=== PATIENT | male | born 1945 | race American Indian/Alaskan Native ===

== ENCOUNTER 2017-12-18 22:10 | Observation (INO) | payer MEDICARE, OTHER ==
[2017-12-19 00:15] LABS: BASO # 0.02 K/mm3 (0.0-2.0); BASO % 0.4 % (0.0-3.0); EOS # 0.8 (0.0-0.7); GRAN # 1.82 (1.4-6.5); GRAN % 34.4 % (50.0-68.0); HEMOGLOBIN 12.1 g/dL (14.0-18.0); LYMPH # 2.3 (1.2-3.4); LYMPH % 43.4 % (22.0-35.0); MEAN CELL VOLUME 78.1 fl (80.0-105.0); MEAN CORPUSCULAR HEMOGLOBIN 26.2 pg (25.0-35.0); MEAN CORPUSCULAR HGB CONC 33.6 g/dl (31.0-37.0); MEAN PLATELET VOLUME 10.2 fl (7.0-11.0); MONO # 0.4 (0.1-0.6); MONO % 6.8 % (1.0-6.0); RBC 4.61 10^6/uL (3.5-6.1); RED CELL DISTRIBUTION WIDTH 14.9 % (11.5-14.5); WHITE BLOOD COUNT 5.3 10^3/ul (4.5-11.0)
[2017-12-19] MEDS ORDERED: Morphine 2 mg/ml ISec IVP STA ×2 (00:19→01:21)
[2017-12-19] MEDS: Sodium Chloride 0.9% 1,000 ML IV SCH ×3 (00:26→21:51)
[2017-12-19 00:27] LABS: INR 1.18 (0.93-1.08); PARTIAL THROMBOPLASTIN TIME 26.8 Seconds (25.1-36.5); PROTHROMBIN TIME 13.5 SECONDS (9.4-12.5)
[2017-12-19 00:31] LABS: ALB/GLOB RATIO 1.2 (1.1-1.8); ALBUMIN 3.9 g/dL (3.0-4.8); ALT/SGPT 45 U/L (7-56); AST/SGOT 42 U/L (17-59); BLOOD UREA NITROGEN 23 mg/dL (7-21); CALCIUM 8.9 mg/dL (8.4-10.5); GFR AFRICAN-AMERICAN 56; GFR NON-AFRICAN AMERICAN 46; HDL CHOLESTEROL 47 mg/dL (29-60)
[2017-12-19 00:42] LABS: LDL CHOLESTEROL 70 mg/dL (0-129)
[2017-12-19 00:45] LABS: TROPONIN I < 0.01 ng/mL
[2017-12-19 01:04] LABS: CK-MB 3.9 ng/mL (0.0-3.6)
--- NOTE | 2017-12-19 01:18 | ED PDOC ---
Arrival/HPI - General Chief Complaint: Headache Time Seen by Provider: 12/18/17 23:00 Historian: Patient - History of Present Illness Narrative History of Present Illness (Text): 12/19/17 00:00 72 year old male, with past medical history of cardiac arrhythmia, open heart surgery and hypertension on Plavix and Eliquis, presents to the Emergency department complaining of sudden onset of headache and neck pain for past 3 hours. Patient states symptoms started as a pressure sensation along the shoulders and neck 3 hours prior to arrival, resolving spontaneously after 10 minutes. However, the sensation returned soon after, associated with pressure across shoulders bilaterally and radiating to his neck and head. Patient states he developed upper extremity weakness bilaterally while waiting in the Emergency department but denies any numbness or tingling. Patient states he is unable to raise his arms above his shoulders. pt denies any lower extremity weakness. Patient denies any dizziness, blurred vision, slurred speech, fever, chills, nausea, vomiting, diarrhea, abdominal pain, chest pain, shortness of breath, or any other complaints. no medications have been taken at home for pain. Time/Duration: 1-3 hours Symptom Onset: Gradual Symptom Course: Unchanged Quality: Aching, Pressure Severity Level: 10 Activities at Onset: Light Context: Home Past Medical History - Provider Review Nursing Documentation Reviewed: Yes - Travel History Have you recently traveled outside [place] w/in the past 3 mons?: No - Tetanus Immunization Tetanus Immunization: Unknown - Psychiatric Hx Substance Use: No Family/Social History - Physician Review Nursing Documentation Reviewed: Yes Family/Social History: No Known Family HX Smoking Status: n Hx Alcohol Use: No Hx Substance Use: No Allergies/Home Meds Allergies/Adverse Reactions: Allergies No Known Allergies Allergy (Verified 12/18/17 23:39) Home Medications: Home Meds Medication Instructions Recorded Confirmed Amiodarone [Cordarone] 200 mg PO BID 12/19/17 12/19/17 Apixaban [Eliquis] 5 mg PO BID 12/19/17 12/19/17 Aspirin [Adult Low Dose Aspirin EC] 81 mg PO DAILY 12/19/17 12/19/17 Atorvastatin [Lipitor] 40 mg PO DAILY 12/19/17 12/19/17 Clopidogrel [Plavix] 75 mg PO DAILY 12/19/17 12/19/17 GlipiZIDE [Glucotrol] 5 mg PO DAILY 12/19/17 12/19/17 Insulin Glargine,Hum.rec.anlog 12.5 units SC 12/19/17 12/19/17 [Basaglthanh Lennonpen U-100] Metoprolol Succinate XL [Toprol XL] 25 mg PO DAILY 12/19/17 12/19/17 Ramipril [Altace] 5 mg PO DAILY 12/19/17 12/19/17 Ramipril [Altace] 10 mg PO DAILY 12/19/17 12/19/17 Tamsulosin [Flomax] 0.4 mg PO DAILY 12/19/17 12/19/17 Review of Systems - Physician Review All systems were reviewed & negative as marked: Yes - Review of Systems Constitutional: Fatigue. absent: Fevers Eyes: Normal Respiratory: absent: SOB, Cough Cardiovascular: absent: Chest Pain, Palpitations Gastrointestinal: absent: Abdominal Pain, Diarrhea, Nausea, Vomiting Genitourinary Male: absent: Dysuria, Frequency, Hematuria, Urinary Output Changes Musculoskeletal: Neck Pain, Other (Upper extremity weakness) Skin: Normal Neurological: Headache. absent: Dizziness, Speech Changes Endocrine: Normal Hemo/Lymphatic: Normal Psychiatric: absent: Anxiety, Depression Physical Exam Vital Signs Reviewed: Yes Vital Signs Temp Pulse Resp BP Pulse Ox 12/19/17 01:42 61 18 182/94 H 100 12/19/17 00:45 63 18 188/99 H 100 12/18/17 23:39 97.9 F 79 18 210/106 H 99 Temperature: Afebrile Blood Pressure: Hypertensive Pulse: Regular Respiratory Rate: Normal Appearance: Positive for: Well-Appearing, Non-Toxic, Uncomfortable Pain Distress: None Mental Status: Positive for: Alert and Oriented X 3 Finger Stick Blood Glucose: 204 - Systems Exam Head: Present: Atraumatic, Normocephalic Pupils: Present: PERRL Extroacular Muscles: Present: EOMI Conjunctiva: Present: Normal Ears: Present: Normal, NORMAL TM Mouth: Present: Moist Mucous Membranes Nose (External): Present: Atraumatic Nose (Internal): Present: Normal Inspection Neck: Present: Normal Range of Motion, MIDLINE TENDERNESS, Paraspinal Tenderness (bilateral paraspinal tenderness), Trachea Midline, Other ( tenderness to trapezius aspect of neck.). No: Lymphadenopathy Respiratory/Chest: Present: Clear to Auscultation, Good Air Exchange. No: Respiratory Distress, Accessory Muscle Use Cardiovascular: Present: Regular Rate and Rhythm, Normal S1, S2. No: Murmurs Abdomen: No: Tenderness, Distention, Peritoneal Signs, Rebound, Guarding Back: Present: Normal Inspection Upper Extremity: Present: Normal Inspection, NORMAL PULSES, Neurovascularly Intact, Capillary Refill < 2s, Other (bilateral upper extremity weakness with decreased abduction of the arm at the shoulder bilaterally. raised printer strenght 5/5 bilaterally). No: Cyanosis, Edema, Normal ROM, Tenderness, Swelling, Erythema Lower Extremity: Present: Normal Inspection, NORMAL PULSES, Normal ROM (with 5/ 5 in strength.), Neurovascularly Intact. No: Edema Neurological: Present: GCS=15, Speech Normal, Motor Func Grossly Intact (muscle strenght is 5/5 bilaterally in the lower extremities. ), Normal Sensory Function Skin: Present: Warm, Dry, Normal Color. No: Rashes Psychiatric: Present: Alert, Oriented x 3, Normal Insight, Normal Concentration Medical Decision Making ED Course and Treatment: 12/19/17 00:00 72 year old male presents to the Emergency department for headache, neck pain and upper extremity weakness. pt was seen and evaluated by dr. avendaño; Plan: -- CT of cervical spine -- CT of Head -- EKG -- Labs -- Chest X-ray -- Morphine -- IV Fluids -- Reassess and disposition Prior Visits: Notes and results from previous visits were reviewed. Progress Notes: 12/19/17 01:[address]; FINDINGS: Brain: There is minimal periventricular white matter hypodensity, likely representing small vessel ischemic disease in a patient this age. The acuity of the white matter disease is indeterminate. Hypodense dilated perivascular spaces are identified below the bilateral basal ganglia. The whitegray differentiation is preserved demonstrating no acute territorial type infarct. Calcification of the falx is visualized. There is mild prominence of the sulci, compatible with atrophy. No acute intracranial hemorrhage is seen. Midline shift: There is no midline shift. Ventricles: No ventriculomegaly. Bones/joints: The calvarium demonstrates no evidence for a depressed fracture. Soft tissues: No acute abnormality. Vasculature: There is atherosclerotic calcification of the intracranial internal carotid arteries. Sinuses: Unremarkable as visualized. No acute sinusitis. Mastoid air cells: No mastoid effusion. IMPRESSION: 1. No acute intracranial hemorrhage or acute territorial type infarct. 2. There is minimal periventricular white matter hypodensity, likely representing small vessel ischemic disease in a patient this age. 3. Mild atrophy. pt requiring multiple doses of morphine for pain; valium added po. ekg; atrial flutter with variable av block at 67 b/m, left axis deviation cxr; no infiltrate, no effusion ct c-spine; FINDINGS: Vertebrae: The cervical lordosis is slightly reversed. There is no acute fracture of the remaining cervical levels. There is no abnormal subluxation of the cervical vertebral bodies. The facet alignment is preserved bilaterally. The occipital condyles and C1-C2 articulations appear intact. Hypertrophic changes are identified anteriorly within the cervical and upper thoracic spine, consistent with DISH. Discs/spinal canal/neural foramina: There is a mild decrease in vertebral height from C3-C6, consistent with compression deformities/fractures. These findings are indeterminate in acuity. Spondylosis is visualized at multiple cervical levels. Artifact limits evaluation of the lower cervical spinal canal. Mild narrowing of the thecal sac is identified at C5-6 and C6-7. Bilateral neural foraminal narrowing is identified from C3-4 through T3-4. Other bones/joints: A sternotomy wire is visualized. Soft tissues: The prevertebral soft tissues appear within normal limits. Vasculature: There is atherosclerosis of the aortic arch There is atherosclerotic calcification of the extracranial carotid arteries. Lung apices: No pneumothorax. Other findings: Facet arthropathy is identified at multiple cervical levels. IMPRESSION: 1. There is a mild decrease in vertebral height from C3-C6, consistent with compression deformities/fractures. These findings are indeterminate in acuity. Clinical correlation and correlation with prior studies (if available) are recommended. 2. The cervical lordosis is slightly reversed. 3. Spondylosis is visualized at multiple cervical levels. 4. Mild narrowing of the thecal sac is identified at C5-6 and C6-7. This can be further evaluated with a nonemergent MRI. 5. Bilateral neural foraminal narrowing is identified from C3-4 through T3-4. 6. Additional findings described above. 12/19/17 02:02 pt reassessment; pt feeling feeling slightly better; he states he still has pain in the neck but states that his is moving is arms better. pt able to hold arms in extended position for 10 seconds bilaterally. spoke with dr. arteaga; he would like the patient to be admitted to the hospitalist service. 12/19/17 02:28 call placed to neurosurgery. case discussed with dr. luis felipe benz; accepts admission 12/19/17 02:41 case was discussed with dr. Silveira (neurosurgery) he reviewed films. i discussed case in depth; he advised that patient will need MRI in the morning for further evaluation of C-spine. I advised him that I added 10mg of decadron and placed patient in soft cervical collar and he agreed with plan. all aspects of this case were discussed the attending of record. impression; neck pain, cervical spine fracture, atrial flutter Admit to tele Reassessment Condition: Re-examined, Improving,but remains with symptoms - Lab Interpretations Lab Results: 12/19/17 00:00 12/19/17 00:00 Lab Results 12/19/17 00:10: Blood Type Pending, Antibody Screen Pending, BBK History Checked No verified bt 12/19/17 00:00: Sodium 142, Potassium 4.0, Chloride 109 H, Carbon Dioxide 24, Anion Gap 14, BUN 23 H, Creatinine 1.5, Est GFR ( Amer) 56, Est GFR (Non- Af Amer) 46, Random Glucose 198 H, Calcium 8.9, Total Bilirubin 0.8, AST 42, ALT 45, Alkaline Phosphatase 77, Lactate Dehydrogenase 568, Total Creatine Kinase 499 H, CK-MB (CK-2) 3.9 H, CK-MB (CK-2) % Cancelled, Troponin I < 0.01, Total Protein 7.0, Albumin 3.9, Globulin 3.2, Albumin/Globulin Ratio 1.2, Triglycerides 52, Cholesterol 135, LDL Cholesterol Direct 70, HDL Cholesterol 47 12/19/17 00:00: PT 13.5 H, INR 1.18 H, APTT 26.8 12/19/17 00:00: WBC 5.3, RBC 4.61, Hgb 12.1 L, Hct 36.0 L, MCV 78.1 L, MCH 26.2 , MCHC 33.6, RDW 14.9 H, Plt Count 152, MPV 10.2, Gran % 34.4 L, Lymph % (Auto) 43.[address], [place] % (Auto) 6.8 H, Eos % (Auto) 15.0 H, Baso % (Auto) 0.4, Gran # 1.82 , Lymph # (Auto) 2.3, [place] # (Auto) 0.4, Eos # (Auto) 0.8 H, Baso # (Auto) 0.02 I have reviewed the lab results: Yes - RAD Interpretation Radiology Orders: 12/18/17 23:59 HEAD W/O CONTRAST [CT] Stat 12/19/17 00:00 CHEST PORTABLE [RAD] Stat 12/19/17 00:02 CERVICAL SPINE W/O CONTRAST [CT] Stat - Medication Orders Current Medication Orders: Sodium Chloride (Sodium Chloride 0.9%) 1,000 mls @ 100 mls/hr IV .Q10H STANLEY Last Admin: 12/19/17 00:26 Dose: 100 mls/hr eMAR Start Stop Document 12/19/17 00:26 AD (Rec: 12/19/17 00:26 AD [id number]) Intravenous Solution Start Date 12/19/17 Start Time 00:26 Discontinued Medications Diazepam (Valium) 2 mg PO ONCE ONE PRN Reason: Protocol Stop: 12/19/17 01:23 Last Admin: 12/19/17 01:30 Dose: 2 mg Morphine Sulfate (Morphine) 2 mg IVP STAT STA Stop: 12/19/17 00:20 Last Admin: 12/19/17 00:43 Dose: 2 mg MAR Pain Assessment Document 12/19/17 00:43 AD (Rec: 12/19/17 00:45 AD [id number]) Pain Reassessment Is this a pain reassessment? No Presence of Pain Presence of Pain Yes Pain Scale Used Pain Scale Used Numeric Description Intensity of Pain at present 10 Pain Behavior Facial Grimacing IVP Administration Document 12/19/17 00:43 AD (Rec: 12/19/17 00:45 AD [id number]) Charges for Administration # of IVP Administrations 1 Morphine Sulfate (Morphine) 2 mg IVP STAT STA Stop: 12/19/17 01:22 Last Admin: 12/19/17 01:32 Dose: 2 mg MAR Pain Assessment Document 12/19/17 01:32 AD (Rec: 12/19/17 01:32 AD [id number]) Pain Reassessment Is this a pain reassessment? 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 MD/DO has examined the patient and agrees with the treatment plan. - Scribe Statement The provider has reviewed the documentation as recorded by the Scribe Rachael Morris. All medical record entries made by the Kassieibmargo were at my direction and personally dictated by me. I have reviewed the chart and agree that the record accurately reflects my personal performance of the history, physical exam, medical decision making, and the department course for this patient. I have also personally directed, reviewed, and agree with the discharge instructions and disposition. Disposition/Present on Arrival - Present on Arrival Any Indicators Present on Arrival: No History of DVT/PE: No History of Uncontrolled Diabetes: No Urinary Catheter: No History of Decub. Ulcer: No History Surgical Site Infection Following: None - Disposition Have Diagnosis and Disposition been Completed?: Yes Diagnosis: Neck pain, Cervical spine fracture, Upper extremity weakness Disposition: HOSPITALIZED Disposition Time: 02:33 Patient Plan: Observation Patient Problems: Current Active Problems Problem Status Onset Cervical spine fracture Acute Neck pain Acute Upper extremity weakness Acute Condition: FAIR Forms: [employer] ([place]ian)
--- NOTE | 2017-12-19 01:48 | CT ---
EXAM: CT Head Without Intravenous Contrast EXAM DATE/TIME: 12/18/2017 11:59 PM CLINICAL HISTORY: The patient age is 72 years old and is male; Pain; Headache; Headache not specified Facility exam id and description: Ct heads head w/o contrast TECHNIQUE: Axial computed tomography images of the head/brain without intravenous contrast. All CT scans at this facility use at least one of these dose optimization techniques: automated exposure control; mA and/or kV adjustment per patient size (includes targeted exams where dose is matched to clinical indication); or iterative reconstruction. Coronal and sagittal reformatted images were created and reviewed. COMPARISON: No relevant prior studies available. FINDINGS: Brain: There is minimal periventricular white matter hypodensity, likely representing small vessel ischemic disease in a patient this age. The acuity of the white matter disease is indeterminate. Hypodense dilated perivascular spaces are identified below the bilateral basal ganglia. The white-anthony differentiation is preserved demonstrating no acute territorial type infarct. Calcification of the falx is visualized. There is mild prominence of the sulci, compatible with atrophy. No acute intracranial hemorrhage is seen. Midline shift: There is no midline shift. Ventricles: No ventriculomegaly. Bones/joints: The calvarium demonstrates no evidence for a depressed fracture. Soft tissues: No acute abnormality. Vasculature: There is atherosclerotic calcification of the intracranial internal carotid arteries. Sinuses: Unremarkable as visualized. No acute sinusitis. Mastoid air cells: No mastoid effusion. IMPRESSION: 1. No acute intracranial hemorrhage or acute territorial type infarct. 2. There is minimal periventricular white matter hypodensity, likely representing small vessel ischemic disease in a patient this age. 3. Mild atrophy.
--- NOTE | 2017-12-19 01:57 | CT ---
EXAM: CT Cervical Spine Without Intravenous Contrast EXAM DATE/TIME: 12/19/2017 12:02 AM CLINICAL HISTORY: The patient age is 72 years old and is male; Pain; Neck pain Facility exam id and description: Ct csps cervical spine w/o contrast TECHNIQUE: Axial computed tomography images of the cervical spine without intravenous contrast. All CT scans at this facility use at least one of these dose optimization techniques: automated exposure control; mA and/or kV adjustment per patient size (includes targeted exams where dose is matched to clinical indication); or iterative reconstruction. Coronal and sagittal reformatted images were created and reviewed. COMPARISON: No relevant prior studies available. FINDINGS: Vertebrae: The cervical lordosis is slightly reversed. There is no acute fracture of the remaining cervical levels. There is no abnormal subluxation of the cervical vertebral bodies. The facet alignment is preserved bilaterally. The occipital condyles and C1-C2 articulations appear intact. Hypertrophic changes are identified anteriorly within the cervical and upper thoracic spine, consistent with DISH. Discs/spinal canal/neural foramina: There is a mild decrease in vertebral height from C3-C6, consistent with compression deformities/fractures. These findings are indeterminate in acuity. Spondylosis is visualized at multiple cervical levels. Artifact limits evaluation of the lower cervical spinal canal. Mild narrowing of the thecal sac is identified at C5-6 and C6-7. Bilateral neural foraminal narrowing is identified from C3-4 through T3-4. Other bones/joints: A sternotomy wire is visualized. Soft tissues: The prevertebral soft tissues appear within normal limits. Vasculature: There is atherosclerosis of the aortic arch There is atherosclerotic calcification of the extracranial carotid arteries. Lung apices: No pneumothorax. Other findings: Facet arthropathy is identified at multiple cervical levels. IMPRESSION: 1. There is a mild decrease in vertebral height from C3-C6, consistent with compression deformities/fractures. These findings are indeterminate in acuity. Clinical correlation and correlation with prior studies (if available) are recommended. 2. The cervical lordosis is slightly reversed. 3. Spondylosis is visualized at multiple cervical levels. 4. Mild narrowing of the thecal sac is identified at C5-6 and C6-7. This can be further evaluated with a nonemergent MRI. 5. Bilateral neural foraminal narrowing is identified from C3-4 through T3-4. 6. Additional findings described above.
--- NOTE | 2017-12-19 03:38 | CP.PCM.HP ---
<Den Zimmer - Last Filed: 12/19/17 05:21> History of Present Illness - History of Present Illness History of Present Illness: CC: head and neck pain Mr. Farah is a 72 year old male with PMH of arrhythmia s/p open heart surgery , DM2, HTN who presented to ED with sudden onset of headache and neck pain. The pain began about 3 hours prior to his arrival. He describes the pain as a sharp , pressure-type sensation along his shoulders and neck. He rates the pain 10/10 in severity. He developed bilateral upper extremity weakness while waiting in the ED but this has improved. He's still unable to raise his arms above his shoulders. He admits to sleeping on his neck with a rolled up pillow but otherwise denies trauma or other inciting events. CT of C-spine in ED showed multiple compression fractures from C3-C6. He denies any numbness/tinging, changes in sensation, blurred vision, slurred speech, fever, chills, chest pain, shortness of breath, nausea, vomiting, diarrhea, abdominal pain. PMH: arrhythmia, DM2, HTN PSH: recent open heart surgery, he is unsure what type of surgery Allergies: NKDA Home Medications: see EMR Social Hx: denies tobacco or drug use, drinks wine occasionally Present on Admission - Present on Admission Any Indicators Present on Admission: No History of DVT/PE: No History of Uncontrolled Diabetes: No Urinary Catheter: No Decubitus Ulcer Present: No Review of Systems - Review of Systems All systems: reviewed and no additional remarkable complaints except (as stated in HPI) Past Patient History - Tetanus Immunizations Tetanus Immunization: Unknown - Past Social History Smoking Status: n - PSYCHIATRIC Hx Substance Use: No Meds Allergies/Adverse Reactions: Allergies Allergy/AdvReac Type Severity Reaction Status Date / Time No Known Allergies Allergy Verified 12/18/17 23:39 Physical Exam - Constitutional Additional comments: In general, he appears uncomfortable and in pain but no acute distress - Head Exam Head Exam: NORMAL INSPECTION - Eye Exam Eye Exam: EOMI, PERRL. absent: Nystagmus, Scleral icterus Pupil Exam: NORMAL ACCOMODATION, PERRL - Neck Exam Additional comments: Neck exam limited due to C-collar. Please refer to neurosurgery notes for more complete examination details. - Respiratory Exam Respiratory Exam: Clear to Auscultation Bilateral, NORMAL BREATHING PATTERN. absent: Accessory Muscle Use, Chest Wall Tenderness, Rales, Rhonchi, Wheezes, Respiratory Distress - Cardiovascular Exam Cardiovascular Exam: REGULAR RHYTHM, RRR, +S1, +S2. absent: Diastolic murmur, Gallop, Rubs, Systolic Murmur - GI/Abdominal Exam GI & Abdominal Exam: Normal Bowel Sounds, Soft. absent: Guarding, Rebound - Extremities Exam Extremities exam: Positive for: normal inspection. Negative for: calf tenderness, pedal edema - Back Exam Back exam: NORMAL INSPECTION - Neurological Exam Neurological exam: Alert, CN II-XII Intact, Oriented x3, Reflexes Normal Additional comments: Lower extremity strength 5/5 bilaterally. Upper extremity strength 4/5 on left and 5/5 on right. Sensation intact in all extremities. - Psychiatric Exam Psychiatric exam: Anxious, Normal Affect - Skin Skin Exam: Dry, Intact, Warm Results - Vital Signs Recent Vital Signs: Last Vital Signs Temp 97.9 F 12/18/17 23:39 Pulse 67 12/19/17 03:21 Resp 18 12/19/17 01:42 BP 164/91 H 12/19/17 03:21 Pulse Ox 100 12/19/17 01:42 - Labs Result Diagrams: 12/19/17 00:00 12/19/17 00:00 Assessment & Plan - Assessment and Plan (Free Text) Assessment: Mr. Farah is a 72 year old male with PMH of DM2, HTN, arrythmia with multiple C-spine compression fractures. 1. C3-C6 Compression Fractures -Unclear etiology -Neurosurgery consult placed -MRI of neck ordered and will be done in AM 2. HTN -Patient admits to not taking BP medicine today -Will continue home meds for now -Consider hydralazine or labetolol if BP continues to be high 3. Cardiac arrhythmia -Patient currently on Amiodarone and Eliquis -Will continue these home meds -Admit to telemetry Patient discussed with Dr. Rei Epperson attending. Den Zimmer DO Internal Medicine Resident PGY-1 <Re Epperson - Last Filed: 12/20/17 01:08> Results - Vital Signs Recent Vital Signs: Last Vital Signs Temp 97.4 F L 12/19/17 18:00 Pulse 63 12/19/17 22:00 Resp 18 12/19/17 18:00 BP 165/82 H 12/19/17 18:01 Pulse Ox 98 12/19/17 06:00 - Labs Result Diagrams: 12/19/17 06:00 12/19/17 06:00 Labs: Laboratory Results - last 24 hr 12/19/17 12/19/17 12/19/17 06:00 06:00 07:15 WBC 4.6 RBC 4.72 Hgb 12.2 L Hct 36.9 L MCV 78.2 L MCH 25.8 MCHC 33.1 RDW 15.1 H Plt Count 154 MPV 10.5 Gran % 84.4 H Lymph % (Auto) 13.7 L [place] % (Auto) 1.3 Eos % (Auto) 0.4 L Baso % (Auto) 0.2 Gran # 3.89 Lymph # (Auto) 0.6 L [place] # (Auto) 0.1 Eos # (Auto) 0.0 Baso # (Auto) 0.01 Sodium 140 Potassium 4.4 Chloride 108 H Carbon Dioxide 21 Anion Gap 15 BUN 22 H Creatinine 1.3 Est GFR ( Amer) > 60 Est GFR (Non-Af Amer) 54 POC Glucose (mg/dL) 226 H Random Glucose 262 H Calcium 9.1 Total Bilirubin 1.0 AST 36 ALT 48 Alkaline Phosphatase 97 Total Protein 7.3 Albumin 3.9 Globulin 3.4 Albumin/Globulin Ratio 1.1 Prostate Specific Ag 12/19/17 12/19/17 12/19/17 10:10 11:08 15:58 WBC RBC Hgb Hct MCV MCH MCHC RDW Plt Count MPV Gran % Lymph % (Auto) [place] % (Auto) Eos % (Auto) Baso % (Auto) Gran # Lymph # (Auto) [place] # (Auto) Eos # (Auto) Baso # (Auto) Sodium Potassium Chloride Carbon Dioxide Anion Gap BUN Creatinine Est GFR ( Amer) Est GFR (Non-Af Amer) POC Glucose (mg/dL) 283 H 291 H Random Glucose Calcium Total Bilirubin AST ALT Alkaline Phosphatase Total Protein Albumin Globulin Albumin/Globulin Ratio Prostate Specific Ag 2.8 H
[2017-12-19] MEDS ORDERED: Pneumococcal 23-Valent Vaccine IM ONE (03:59)
[2017-12-19] MEDS ORDERED: Morphine 2 mg/ml ISec IVP PRN (04:13)
[2017-12-19 06:30] LABS: BASO # 0.01 K/mm3 (0.0-2.0); BASO % 0.2 % (0.0-3.0); EOS % 0.4 % (1.5-5.0); GRAN # 3.89 (1.4-6.5); GRAN % 84.4 % (50.0-68.0); HEMOGLOBIN 12.2 g/dL (14.0-18.0); LYMPH # 0.6 (1.2-3.4); LYMPH % 13.7 % (22.0-35.0); MEAN CELL VOLUME 78.2 fl (80.0-105.0); MEAN CORPUSCULAR HEMOGLOBIN 25.8 pg (25.0-35.0); MEAN CORPUSCULAR HGB CONC 33.1 g/dl (31.0-37.0); MEAN PLATELET VOLUME 10.5 fl (7.0-11.0); MONO # 0.1 (0.1-0.6); MONO % 1.3 % (1.0-6.0); RBC 4.72 10^6/uL (3.5-6.1); RED CELL DISTRIBUTION WIDTH 15.1 % (11.5-14.5); WHITE BLOOD COUNT 4.6 10^3/ul (4.5-11.0)
[2017-12-19 07:06] LABS: ALB/GLOB RATIO 1.1 (1.1-1.8); ALBUMIN 3.9 g/dL (3.0-4.8); ALT/SGPT 48 U/L (7-56); AST/SGOT 36 U/L (17-59); BLOOD UREA NITROGEN 22 mg/dL (7-21); CALCIUM 9.1 mg/dL (8.4-10.5); GFR AFRICAN-AMERICAN > 60; GFR NON-AFRICAN AMERICAN 54
--- NOTE | 2017-12-19 09:55 | CP.PCM.PN ---
Subjective - Date & Time of Evaluation Date of Evaluation: 12/19/17 Time of Evaluation: 09:54 - Subjective Subjective: full consult dictated await MRI Objective - Vital Signs/Intake and Output Vital Signs (last 24 hours): Temp Pulse Resp BP Pulse Ox 97.8 F 78 19 165/88 H 98 12/19/17 06:00 12/19/17 06:00 12/19/17 06:00 12/19/17 06:00 12/19/17 06:00 Intake and Output: 12/19/17 12/19/17 06:59 18:59 Intake Total 300 Output Total 0 Balance 300 - Medications Medications: Current Medications Amiodarone HCl (Cordarone) 200 mg PO BID [facility] Apixaban (Eliquis) 5 mg PO BID [facility] PRN Reason: Protocol Aspirin (Ecotrin) 81 mg PO DAILY [facility] Atorvastatin Calcium (Lipitor) 40 mg PO DAILY [facility] Clopidogrel Bisulfate (Plavix) 75 mg PO DAILY [facility] Hydrochlorothiazide (Microzide) 12.5 mg PO DAILY [facility] Sodium Chloride (Sodium Chloride 0.9%) 1,000 mls @ 100 mls/hr IV .Q10H [facility] Last Admin: 12/19/17 00:26 Dose: 100 mls/hr Insulin Human Regular (Humulin R Low) 0 units SC ACHS [facility] PRN Reason: Protocol Metoprolol Succinate (Toprol Xl) 25 mg PO DAILY [facility] Morphine Sulfate (Morphine) 2 mg IVP Q4H PRN PRN Reason: Pain, moderate (4-7) Ramipril (Altace) 10 mg PO DAILY [facility] Tamsulosin HCl (Flomax) 0.4 mg PO DAILY [facility] - Labs Labs: 12/19/17 06:00 12/19/17 06:00 PT 13.5 SECONDS (9.4-12.5) H 12/19/17 00:00 INR 1.18 (0.93-1.08) H 12/19/17 00:00 APTT 26.8 Seconds (25.1-36.5) 12/19/17 00:00
[2017-12-19] MEDS ORDERED: Metoprolol Succinate 25 mg XL Tab PO SCH (10:00)
--- NOTE | 2017-12-19 11:41 | RAD ---
HISTORY: neck pain/ upper extremity weakness COMPARISON: No prior. FINDINGS: LUNGS: No active pulmonary disease. PLEURA: No significant pleural effusion identified, no pneumothorax apparent. CARDIOVASCULAR: No radiographic findings to suggest acute or significant cardiovascular disease. Incidental Finding(s): Postoperative changes related to sternotomy. OSSEOUS STRUCTURES: No significant abnormalities. VISUALIZED UPPER ABDOMEN: Normal. OTHER FINDINGS: None. IMPRESSION: No active disease.
[2017-12-19] MEDS: Insulin Reg-LOW-Coverage SC SCH ×3 (12:08→21:20)
[2017-12-20] MEDS: Sodium Chloride 0.9% 1,000 ML IV SCH (05:38)
[2017-12-20 06:17] VITALS: O2SAT 98
[2017-12-20 06:41] LABS: EOS % 0.3 % (1.5-5.0); GRAN # 6.22 (1.4-6.5); GRAN % 78.5 % (50.0-68.0); HEMOGLOBIN 10.8 g/dL (14.0-18.0); LYMPH # 1.1 (1.2-3.4); LYMPH % 13.4 % (22.0-35.0); MEAN CELL VOLUME 77.8 fl (80.0-105.0); MEAN CORPUSCULAR HEMOGLOBIN 26.1 pg (25.0-35.0); MEAN CORPUSCULAR HGB CONC 33.5 g/dl (31.0-37.0); MEAN PLATELET VOLUME 10.8 fl (7.0-11.0); MONO # 0.6 (0.1-0.6); MONO % 7.8 % (1.0-6.0); RBC 4.14 10^6/uL (3.5-6.1); RED CELL DISTRIBUTION WIDTH 14.9 % (11.5-14.5)
[2017-12-20 07:02] LABS: WHITE BLOOD COUNT 7.9 10^3/ul (4.5-11.0)
[2017-12-20 07:18] LABS: ALB/GLOB RATIO 1.1 (1.1-1.8); ALBUMIN 3.1 g/dL (3.0-4.8); ALT/SGPT 33 U/L (7-56); AST/SGOT 20 U/L (17-59); BLOOD UREA NITROGEN 25 mg/dL (7-21); CALCIUM 8.9 mg/dL (8.4-10.5); GFR AFRICAN-AMERICAN > 60; GFR NON-AFRICAN AMERICAN 60
[2017-12-20] MEDS: Insulin Reg-LOW-Coverage SC SCH (08:18)
--- NOTE | 2017-12-20 08:22 | CARD ---
APPROVED REPORT EKG Measurement Heart [id number] <Conclusion> Atrial flutter with variable AV block Left axis deviation Nonspecific intraventricular block PRWP Cannot rule out Bong-Septal infarct, age undetermined STTW changes
--- NOTE | 2017-12-20 08:31 | CON ---
DATE: 12/19/2017 HISTORY OF PRESENT ILLNESS: This is a 72-year-old male who reports that over the last 2 to 3 days, he has had some intermittent neck pain. He reports that yesterday the pain became very severe to 10/10. It was accompanied by his inability to raise his arms at the shoulders. He presented to the emergency room. CT was done of the cervical spine and head. The head did now show any pathology related to this and cervical spine showed severe degenerative changes with mild neuroforaminal compression throughout with no real central stenosis and what they read is multiple compression fractures, but these are all severe degenerative changes. He denies any numbness or tingling in his arms. He denies any change in sensation, any blurred vision, any problems with his legs, any numbness, weakness, or paresthesias to his legs. He denies any urinary problems aside from his usual. He has shown some improvement since his admission to the ER and he feels that his arms are generally stronger than that were last night. PAST MEDICAL HISTORY: Cardiac disease with cardiac arrhythmia. He is status post cardiac surgery. He believes it was stent placement, this was done in July. He has diabetes, hypertension, and prostatic hypertrophy. ALLERGIES: HE HAS NO ALLERGIES. MEDICATIONS: Listed in his chart. SOCIAL HISTORY: Denies alcoholic drugs. Drinks occasionally. FAMILY HISTORY: Noncontributory. REVIEW OF SYSTEMS: Documented in the medical record. I reviewed this with him. PHYSICAL EXAMINATION: NEUROLOGIC: Today finds that his cranial nerves are intact. He has really no cervical tenderness. He has good strength in all muscle groups to testing with the exception of deltoids bilaterally. With that exception, he has 5/5 throughout. In the deltoids, he is actively able to bring his arms to the horizontal, but not above. However, when his arms are lifted above the horizontal, he is able to hold them up and he is able to hold them up against full resistance. He has no sensory deficit to pin and touch. His reflexes are 1/4. There are no pathologic reflexes. IMPRESSION: He has bilateral deltoid weakness. There is really nothing specific in the CT scan that can relate to the etiology of this. This could be a very limited central cord syndrome from perhaps a vascular event of the spinal cord and could be some other motor neuron type disease which is presenting slowly. He was given some steroids in the ER, which may or may not have helped. PLAN: At this point, we need to await an MRI to see why this is coming on. We have to verify that if he did have a stent, it is MRI compatible before putting him through the MRI. I will follow along and at some point after appropriate diagnostic workup has been completed, we will make an opinion with regard to the need and timing of any surgical procedure. Hussain Silveira MD
--- NOTE | 2017-12-20 11:17 | MRI ---
PROCEDURE: MR CERVICAL SPINE WITHOUT CONTRAST HISTORY: compression fx COMPARISON: None available. TECHNIQUE: Multiecho multiplanar sequences were performed through the cervical spine without the use of intravenous contrast. FINDINGS: There is straightening of the cervical spine with loss of normal cervical lordosis. Vertebral alignment is normal. There are degenerative reduced vertebral body heights at C3, C4, C5 and C6 however bone marrow signal is within normal limits. The craniocervical junction is normal. There is mild degenerative osteoarthrosis at the atlantoaxial joint. 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 The thoracic cord is normal in caliber. There is multifocal abnormal intrinsic T2 signal in the cervical cord, intrinsic abnormal T2 signal in the right [place] cord at C2, the left hemicord at C3, and the left hemicord at C4. C2-C3: Disc osteophyte complex and mild spinal canal stenosis without neural foraminal narrowing. C3-C4: Broad-based disc osteophyte complex with mild spinal canal stenosis. Also noted is superimposed left posterolateral and foraminal disc protrusions which in conjunction with mild facet arthropathy result in moderate to severe right and severe left neural foraminal narrowing. C4-C5: Broad-based disc osteophyte complex with asymmetric right uncovertebral joint hypertrophy in conjunction with moderate facet arthropathy result in severe right and [id number] left neural foraminal narrowing and mild spinal canal stenosis. C5-C6: Broad-based central disc protrusion abuts the ventral cord and in conjunction with mild ligamentum flavum infolding result in moderate spinal canal stenosis. Mild right and moderate left facet arthropathy contribute to moderate right and severe left neural foraminal narrowing. C6-C7: Broad-based disc osteophyte complex in conjunction with mild ligamentum flavum infolding result in mild spinal canal stenosis. Mild bilateral facet arthropathy contribute to moderate to severe neural foraminal narrowing. C7-T1: Bilateral foraminal disc protrusion in conjunction with mild facet arthropathy result in severe neural foraminal narrowing. Also noted is mild spinal canal stenosis. OTHER FINDINGS: There are also diffuse posterior disc bulges at T1-2 and T2-3 which indent the ventral thecal sac with resultant mild spinal canal stenosis. There is an enlarged multinodular thyroid gland. IMPRESSION: 1. Multilevel degenerative disc disease superimposed on a congenitally narrow spinal canal worse at C5-C6 with a broad-based central disc protrusion, moderate spinal canal stenosis, moderate right and severe left neural foraminal narrowing. 2. Multifocal intrinsic cord signal abnormality at C2, C3 and C4 is strictly nonspecific. The differential considerations include demyelination, cord ischemic and cord edema. Clinical follow-up is advised and if clinically indicated, MRI with intravenous contrast may be performed to exclude active demyelination.
--- NOTE | 2017-12-20 11:18 | CP.PCM.PN ---
Subjective - Date & Time of Evaluation Date of Evaluation: 12/20/17 Time of Evaluation: 11:16 - Subjective Subjective: strength returned to normal pain significantly better MRI reviewed some c3/4 foraminal stenosis and HNP at c5/6 but has significant myelomalacia or rfrm in cord mostly at C2/3 couold be recent small cord infact causing symptoms which resolved no indication at this time for surgery Objective - Vital Signs/Intake and Output Vital Signs (last 24 hours): Temp Pulse Resp BP Pulse Ox 97.8 F 53 L 18 137/72 98 12/20/17 06:00 12/20/17 10:00 12/20/17 06:00 12/20/17 06:00 12/20/17 06:00 Intake and Output: 12/20/17 12/20/17 06:59 18:59 Intake Total 1620 Output Total 1500 Balance 120 - Medications Medications: Current Medications Apixaban (Eliquis) 5 mg PO BID [facility] PRN Reason: Protocol Last Admin: 12/20/17 10:55 Dose: 5 mg Atorvastatin Calcium (Lipitor) 40 mg PO DAILY [facility] Last Admin: 12/20/17 10:55 Dose: 40 mg Clopidogrel Bisulfate (Plavix) 75 mg PO DAILY [facility] Last Admin: 12/20/17 10:55 Dose: 75 mg Glipizide (Glucotrol) 5 mg PO DAILY [facility] Last Admin: 12/20/17 10:55 Dose: 5 mg Hydrochlorothiazide (Microzide) 12.5 mg PO DAILY [facility] Last Admin: 12/20/17 10:55 Dose: 12.5 mg Sodium Chloride (Sodium Chloride 0.9%) 1,000 mls @ 100 mls/hr IV .Q10H [facility] Last Admin: 12/20/17 05:38 Dose: 100 mls/hr Insulin Human Regular (Humulin R High) 0 units SC ACHS [facility] PRN Reason: Protocol Metoprolol Succinate (Toprol Xl) 25 mg PO DAILY [facility] Last Admin: 12/19/17 09:38 Dose: 25 mg Morphine Sulfate (Morphine) 2 mg IVP Q4H PRN PRN Reason: Pain, moderate (4-7) Last Admin: 12/19/17 12:50 Dose: 2 mg Ramipril (Altace) 10 mg PO DAILY [facility] Last Admin: 12/20/17 10:55 Dose: 10 mg Tamsulosin HCl (Flomax) 0.4 mg PO DAILY [facility] Last Admin: 12/20/17 10:55 Dose: 0.4 mg - Labs Labs: 12/20/17 06:10 12/20/17 06:10 PT 13.5 SECONDS (9.4-12.5) H 12/19/17 00:00 INR 1.18 (0.93-1.08) H 12/19/17 00:00 APTT 26.8 Seconds (25.1-36.5) 12/19/17 00:00
[2017-12-20] MEDS ORDERED: Insulin Reg-HIGH-Coverage SC SCH (11:30)
[2017-12-20 12:39] VITALS: RESP 20
--- NOTE | 2017-12-20 16:58 | CP.PCM.DIS ---
<Joe Ferrer - Last Filed: 12/23/17 07:48> Provider - Provider Date of Admission: 12/19/17 02:26 Attending physician: Chidi Chase MD Consults: Neurosurgery: Dr. Silveira Cardiology: Dr. Shaikh Time Spent in preparation of Discharge (in minutes): 40 Diagnosis - Discharge Diagnosis (1) Cervical spine fracture Status: Acute Priority: Low (2) Neck pain Status: Acute Priority: Low (3) Upper extremity weakness Status: Acute Priority: Low (4) Hypertension Status: Chronic Priority: High (5) CAD (coronary artery disease) Status: Chronic Priority: High Hospital Course - Lab Results Lab Results: Most Recent Lab Values WBC 7.9 10^3/ul (4.5-11.0) D 12/20/17 06:10 RBC 4.14 10^6/uL (3.5-6.1) 12/20/17 06:10 Hgb 10.8 g/dL (14.0-18.0) L 12/20/17 06:10 Hct 32.2 % (42.0-52.0) L 12/20/17 06:10 MCV 77.8 fl (80.0-105.0) L 12/20/17 06:10 MCH 26.1 pg (25.0-35.0) 12/20/17 06:10 MCHC 33.5 g/dl (31.0-37.0) 12/20/17 06:10 RDW 14.9 % (11.5-14.5) H 12/20/17 06:10 Plt Count 145 10^3/uL (120.0-450.0) 12/20/17 06:10 MPV 10.8 fl (7.0-11.0) 12/20/17 06:10 Gran % 78.5 % (50.0-68.0) H 12/20/17 06:10 Lymph % (Auto) 13.4 % (22.0-35.0) L 12/20/17 06:10 [place] % (Auto) 7.8 % (1.0-6.0) H 12/20/17 06:10 Eos % (Auto) 0.3 % (1.5-5.0) L 12/20/17 06:10 Baso % (Auto) 0.0 % (0.0-3.0) 12/20/17 06:10 Gran # 6.22 (1.4-6.5) 12/20/17 06:10 Lymph # (Auto) 1.1 (1.2-3.4) L 12/20/17 06:10 [place] # (Auto) 0.6 (0.1-0.6) 12/20/17 06:10 Eos # (Auto) 0.0 (0.0-0.7) 12/20/17 06:10 Baso # (Auto) 0.00 K/mm3 (0.0-2.0) 12/20/17 06:10 PT 13.5 SECONDS (9.4-12.5) H 12/19/17 00:00 INR 1.18 (0.93-1.08) H 12/19/17 00:00 APTT 26.8 Seconds (25.1-36.5) 12/19/17 00:00 Sodium 140 mmol/L (132-148) 12/20/17 06:10 Potassium 4.6 mmol/L (3.6-5.0) 12/20/17 06:10 Chloride 109 mmol/L (98-107) H 12/20/17 06:10 Carbon Dioxide 22 mmol/L (21-33) 12/20/17 06:10 Anion Gap 14 (10-20) 12/20/17 06:10 BUN 25 mg/dL (7-21) H 12/20/17 06:10 Creatinine 1.2 mg/dl (0.8-1.5) 12/20/17 06:10 Est GFR ( Amer) > 60 12/20/17 06:10 Est GFR (Non-Af Amer) 60 12/20/17 06:10 POC Glucose (mg/dL) 215 mg/dL (65-110) H 12/20/17 12:08 Random Glucose 240 mg/dL (70-110) H 12/20/17 06:10 Hemoglobin A1c 8.1 % (4.2-6.5) H 12/20/17 06:10 Calcium 8.9 mg/dL (8.4-10.5) 12/20/17 06:10 Total Bilirubin 0.9 mg/dL (0.2-1.3) 12/20/17 06:10 AST 20 U/L (17-59) 12/20/17 06:10 ALT 33 U/L (7-56) 12/20/17 06:10 Alkaline Phosphatase 61 U/L (38-126) 12/20/17 06:10 Lactate Dehydrogenase 568 U/L (333-699) 12/19/17 00:00 Total Creatine Kinase 499 U/L (35-230) H 12/19/17 00:00 CK-MB (CK-2) 3.9 ng/mL (0.0-3.6) H 12/19/17 00:00 CK-MB (CK-2) % Cancelled 12/19/17 00:00 Troponin I < 0.01 ng/mL 12/19/17 00:00 Total Protein 6.0 g/dL (5.8-8.3) 12/20/17 06:10 Albumin 3.1 g/dL (3.0-4.8) 12/20/17 06:10 Globulin 2.9 gm/dL 12/20/17 06:10 Albumin/Globulin Ratio 1.1 (1.1-1.8) 12/20/17 06:10 Triglycerides 52 mg/dL (35-160) 12/19/17 00:00 Cholesterol 135 mg/dL (130-200) 12/19/17 00:00 LDL Cholesterol Direct 70 mg/dL (0-129) 12/19/17 00:00 HDL Cholesterol 47 mg/dL (29-60) 12/19/17 00:00 Prostate Specific Ag 2.8 ng/mL (0.00-2.5) H 12/19/17 10:10 TSH 3rd Generation 0.49 mIU/mL (0.46-4.68) 12/20/17 06:10 Blood Type B NEGATIVE 12/19/17 00:10 Blood Type Confirm B NEGATIVE 12/19/17 00:35 Antibody Screen Negative 12/19/17 00:10 BBK History Checked No verified bt 12/19/17 00:10 - Hospital Course Hospital Course: Mr. Farah is a 72 year old male with PMH of arrhythmia s/p open heart surgery , DM2, hypertension who presented to emergency department with sudden onset of headache and neck pain. The pain began about 3 hours prior to his arrival. He described the pain as a sharp, pressure-type sensation along his shoulders and neck rating it a 10/10 in severity. Patient received decadron and valium in the emergency department which helped relieve his pain. MRI of cervical spine was done which showed degenerative changes from C3-T4. MRI and patient were both evaluated by neurosurgery who stated his symptoms and findings were due to aging. Patient symptoms during course of hospital stay improved and patient was instructed to follow up with neurosurgery as outpatient. During course of hospital stay patient was also noted to have elevated blood pressure despite his home medications therefore hydrochlorothiazide was added to the regimen. He was also noted to have sinus pauses which were asymptomatic. As a result patient 's amiodarone and metoprolol were both discontinued as per cardiology and patient was instructed to discuss medication changes for further evaluation by his lithographic plate maker apprentice for which he had an appointment on December 26. Patient was in agreement with plan and then discharged. Case discussed and reviewed with Dr. Rena Ferrer PGY2 Discharge Exam - Head Exam Head Exam: NORMAL INSPECTION - Eye Exam Eye Exam: EOMI, Normal appearance - Neck Exam Neck exam: Full Rom, Normal Inspection - Respiratory Exam Respiratory Exam: Clear to PA & Lateral, NORMAL BREATHING PATTERN, UNREMARKABLE. absent: Wheezes - Cardiovascular Exam Cardiovascular Exam: Diastolic murmur, REGULAR RHYTHM, +S1, +S2, Systolic Murmur - GI/Abdominal Exam GI & Abdominal Exam: Normal Bowel Sounds, Unremarkable - Extremities Exam Extremities exam: normal inspection - Back Exam Back exam: NORMAL INSPECTION - Neurological Exam Neurological exam: Alert, CN II-XII Intact, Oriented x3 - Psychiatric Exam Psychiatric exam: Normal Affect, Normal Mood - Skin Skin Exam: Dry, Intact, Normal Color, Warm Discharge Plan - Discharge Medications Prescriptions: hydroCHLOROthiazide [Microzide] 12.5 mg PO DAILY #30 cap - Follow Up Plan Condition: FAIR Disposition: HOME/ ROUTINE Instructions: Neck Fracture (DC), Generalized Neck Pain (DC), Atrial Flutter ( DC) Additional Instructions: 1. Patient is to follow up with PMD within 3-5 days regarding admission. 2. Please follow up with your lithographic plate maker apprentice as you said you have an appointment on 12/26/2017. Please refrain from taking metoprolol and amiodarone; discuss further with lithographic plate maker apprentice considering you experienced bradycardia during course of hospital stay with asymptomatic sinus pauses. You will however be started on a new medication, Hydrochlorothiazide 12.5 mg per day. 3. Please follow up with Neurorsurgery as outpatient. 4. If symptoms worsen or return please be sure to go to your nearest emergency department. Referrals: Hussain Silveira MD [Staff Provider] - <Chidi Chase - Last Filed: 12/23/17 08:04> Provider - Provider Date of Admission: 12/19/17 02:26 Attending physician: Chidi Chase MD Hospital Course - Lab Results Lab Results: Most Recent Lab Values WBC 7.9 10^3/ul (4.5-11.0) D 12/20/17 06:10 RBC 4.14 10^6/uL (3.5-6.1) 12/20/17 06:10 Hgb 10.8 g/dL (14.0-18.0) L 12/20/17 06:10 Hct 32.2 % (42.0-52.0) L 12/20/17 06:10 MCV 77.8 fl (80.0-105.0) L 12/20/17 06:10 MCH 26.1 pg (25.0-35.0) 12/20/17 06:10 MCHC 33.5 g/dl (31.0-37.0) 12/20/17 06:10 RDW 14.9 % (11.5-14.5) H 12/20/17 06:10 Plt Count 145 10^3/uL (120.0-450.0) 12/20/17 06:10 MPV 10.8 fl (7.0-11.0) 12/20/17 06:10 Gran % 78.5 % (50.0-68.0) H 12/20/17 06:10 Lymph % (Auto) 13.4 % (22.0-35.0) L 12/20/17 06:10 [place] % (Auto) 7.8 % (1.0-6.0) H 12/20/17 06:10 Eos % (Auto) 0.3 % (1.5-5.0) L 12/20/17 06:10 Baso % (Auto) 0.0 % (0.0-3.0) 07/05/18 06:10 Gran # 6.22 (1.4-6.5) 12/20/17 06:10 Lymph # (Auto) 1.1 (1.2-3.4) L 12/20/17 06:10 [place] # (Auto) 0.6 (0.1-0.6) 12/20/17 06:10 Eos # (Auto) 0.0 (0.0-0.7) 12/20/17 06:10 Baso # (Auto) 0.00 K/mm3 (0.0-2.0) 12/20/17 06:10 PT 13.5 SECONDS (9.4-12.5) H 12/19/17 00:00 INR 1.18 (0.93-1.08) H 12/19/17 00:00 APTT 26.8 Seconds (25.1-36.5) 12/19/17 00:00 Sodium 140 mmol/L (132-148) 12/20/17 06:10 Potassium 4.6 mmol/L (3.6-5.0) 12/20/17 06:10 Chloride 109 mmol/L (98-107) H 12/20/17 06:10 Carbon Dioxide 22 mmol/L (21-33) 12/20/17 06:10 Anion Gap 14 (10-20) 12/20/17 06:10 BUN 25 mg/dL (7-21) H 12/20/17 06:10 Creatinine 1.2 mg/dl (0.8-1.5) 12/20/17 06:10 Est GFR ( Amer) > 60 12/20/17 06:10 Est GFR (Non-Af Amer) 60 12/20/17 06:10 POC Glucose (mg/dL) 215 mg/dL (65-110) H 12/20/17 12:08 Random Glucose 240 mg/dL (70-110) H 12/20/17 06:10 Hemoglobin A1c 8.1 % (4.2-6.5) H 12/20/17 06:10 Calcium 8.9 mg/dL (8.4-10.5) 12/20/17 06:10 Total Bilirubin 0.9 mg/dL (0.2-1.3) 12/20/17 06:10 AST 20 U/L (17-59) 12/20/17 06:10 ALT 33 U/L (7-56) 12/20/17 06:10 Alkaline Phosphatase 61 U/L (38-126) 12/20/17 06:10 Lactate Dehydrogenase 568 U/L (333-699) 12/19/17 00:00 Total Creatine Kinase 499 U/L (35-230) H 12/19/17 00:00 CK-MB (CK-2) 3.9 ng/mL (0.0-3.6) H 12/19/17 00:00 CK-MB (CK-2) % Cancelled 12/19/17 00:00 Troponin I < 0.01 ng/mL 12/19/17 00:00 Total Protein 6.0 g/dL (5.8-8.3) 12/20/17 06:10 Albumin 3.1 g/dL (3.0-4.8) 12/20/17 06:10 Globulin 2.9 gm/dL 12/20/17 06:10 Albumin/Globulin Ratio 1.1 (1.1-1.8) 12/20/17 06:10 Triglycerides 52 mg/dL (35-160) 12/19/17 00:00 Cholesterol 135 mg/dL (130-200) 12/19/17 00:00 LDL Cholesterol Direct 70 mg/dL (0-129) 12/19/17 00:00 HDL Cholesterol 47 mg/dL (29-60) 12/19/17 00:00 Prostate Specific Ag 2.8 ng/mL (0.00-2.5) H 12/19/17 10:10 TSH 3rd Generation 0.49 mIU/mL (0.46-4.68) 12/20/17 06:10 Blood Type B NEGATIVE 12/19/17 00:10 Blood Type Confirm B NEGATIVE 12/19/17 00:35 Antibody Screen Negative 12/19/17 00:10 BBK History Checked No verified bt 12/19/17 00:10 Attending/Attestation - Attestation I have personally seen and examined this patient.: Yes I have fully participated in the care of the patient.: Yes I have reviewed all pertinent clinical information, including history, physical exam and plan: Yes Notes (Text): 72 year old male with past medical history of CAD, arrhythmia, diabetes and hypertension who presented with complaint of neck pain. He had a CT cervical spine which showed compression deformities/fractures C3-C6 and spondylosis. He was given decadron and valium in ER. His symptoms improved. 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 Reviewed by neurosurgery. Patients symptoms improved and he is cleared by neurosurgery with outpatient follow up. While on telemetry unit he had bradycardia and sinus pause. His metoprolol and amiodarone were discontinued per cardiology. He is recommended to follow up with his lithographic plate maker apprentice. Patient is discharged home to follow up with pmd. Follow up with cardiology. Follow up with neurosurgery. Chidi Chase MD Hospitalist.
--- NOTE | 2017-12-20 17:35 | CARD ---
APPROVED REPORT EXAM: Two-dimensional and M-mode echocardiogram with Doppler and color Doppler. INDICATION Pre-Op S/P CABG/LVFX 2D DIMENSIONS Left Atrium (2D)4.6 (1.6-4.0cm)IVSd1.2 (0.7-1.1cm) LVDd4.9 (3.9-5.9cm)PWd1.3 (0.7-1.1cm) LVDs3.3 (2.5-4.0cm)FS (%) 32.4 % LVEF (%)60.5 (>50%) M-Mode DIMENSIONS Aortic Root3.90 (2.2-3.7cm)Aortic Cusp Exc.1.60 (1.5-2.0cm) Aortic Valve AoV Peak Nzlwfzpj891.0cm/Anais Peak GR.5mmHg Mitral Valve MV E Royytash587.0cm/sMV A Uzbnyfnc82.4cm/sE/A ratio1.4 TDI Lateral E' Peak V10.70cm/sMedial E' Peak V5.56cm/sE/Lateral E'11.1 E/Medial E'21.4 Pulmonary Valve PV Peak Clcxdjaz52.4cm/sPV Peak Grad.1mmHg Tricuspid Valve TR Peak Fjsgmsry105lq/sRAP LIKKRRSW19wuNcGC Peak Gr.36mmHg [id number] LEFT VENTRICLE The left ventricle is normal size. There is mild concentric left ventricular hypertrophy. Left ventricle systolic function is low normal.EF-50-55% There is mild hypokinesis in the basal inferolateral wall. Septal motion consistent with post-operative state. Transmitral Doppler flow pattern is Grade II-pseudonormal filling dynamics. No left ventricle thrombus noted on this study. There is no ventricular septal defect visualized. There is no left ventricular aneurysm. There is no mass noted in the left ventricle. RIGHT VENTRICLE The right ventricle is mildly dilated. The right ventricle is mildly hypertrophied. Systolic function of RV is mildly reduced. ATRIA The left atrium is mildly dilated. The right atrium is mildly dilated. The interatrial septum is intact with no evidence for an atrial septal defect. AORTIC VALVE The aortic valve is thickened but opens well. There is trace to mild aortic regurgitation. There is no aortic valvular stenosis. There is no aortic valvular vegetation. MITRAL VALVE The mitral valve is thickened but opens well. Mitral regurgitation is mild. There is no mitral valve stenosis. There is no evidence of mitral valve prolapse. TRICUSPID VALVE The tricuspid valve leaflets are thickened , but open well. There is mild to moderate tricuspid regurgitation.RVSP-46 mmof hg. There is no tricuspid valve stenosis. There is no tricuspid valve prolapse or vegetation. PULMONIC VALVE The pulmonic valve is mildly thickened. There is trace to mild pulmonic valvular regurgitation. There is no pulmonic valvular stenosis. GREAT VESSELS The aortic root is normal in size. The ascending aorta is normal in size. The pulmonary artery is normal. The IVC is normal in size and collapses >50% with inspiration. PERICARDIAL EFFUSION There is no pleural effusion. There is no pericardial effusion. <Conclusion> The left ventricle is normal size. Left ventricle systolic function is low normal.EF-50-55% The right ventricle is mildly dilated. There is trace to mild aortic regurgitation. Mitral regurgitation is mild. There is mild to moderate tricuspid regurgitation.RVSP-46 mmof hg. There is trace to mild pulmonic valvular regurgitation. The IVC is normal in size and collapses >50% with inspiration. There is no pericardial effusion. No Vegetation or thrombus noted.
[2017-12-20 17:57] VITALS: BP 139/69; PULSE 55; TEMP 98.2
--- NOTE | 2017-12-21 08:24 | CON ---
REASON FOR CONSULTATION: Preop evaluation, risk stratification for possible cervical spinal surgery, also bradycardiac heart rate, 40s with 2-second pause, atrial flutter chronic on anticoagulation. 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 Around 3 p.m. yesterday, the patient had a neck pain and radiating to both shoulders. That got better in 5 minutes. Around 8 to 8:30, when the patient after dinner laying down, he felt the same pain in the neck. Started shooting to the head and both shoulder blade and then he felt weakness on both upper extremity. He decided to come to the emergency room. By the time, the patient decided to come to the emergency room also feels that the leg is getting weaker, unable to walk, so the patient came to the emergency room on the wheelchair. Denies any chest pain, denies any shortness of breath, denies any palpitations, denies any double vision or loss of vision or nausea, vomiting. PAST MEDICAL HISTORY: Significant for atrial fibrillation/flutter diagnosed after the open heart surgery, history of open heart surgery, three vessels bypass in 06/2017, hypertension, type 2 diabetes. PAST SURGICAL HISTORY: Significant, open heart surgery, coronary artery bypass surgery, three vessels in 06/2017 at [facility] and then the patient had in 1999 right total knee joint replacement because of osteoarthritis. SOCIAL HISTORY: Used to smoke, quit many years ago. Socially drinks wine. Denies any substance abuse. FAMILY HISTORY: Noncontributory. CURRENT MEDICATIONS: The patient at home was taking insulin, aspirin 81 mg, metoprolol succinate 25 mg daily, ramipril 10 mg daily, atorvastatin 40 mg daily, clopidogrel 75 mg daily, amiodarone 200 mg daily, Eliquis 5 mg daily, ramipril 5 mg daily, and glipizide 5 mg daily. Private PM[facility] cpo at [facility]. Surgery was done at [facility]. REVIEW OF SYSTEMS: As per HPI. PHYSICAL EXAMINATION: VITAL SIGNS: Height of the patient is 6 feet, weight of the patient is 203 pounds, body mass index 27.7 kg, Temperature afebrile, heart rate 52, blood pressure 137/72. HEENT: PERRLA. Extraocular muscles intact. NECK: Supple. No carotid bruit. No thyromegaly. CHEST: Clear to auscultation. HEART: S1 and S2 regular. ABDOMEN: Soft. EXTREMITIES: Clubbing and cyanosis negative. LABORATORY DATA: EKG showed AFib/flutter with variable conduction 3 to 4 to [address]-T changes noted. A 2.2 seconds pause noted last night. IMPRESSION: A 72-year-old male with past medical history significant for coronary artery disease status post coronary artery bypass graft in 06/2017, history of atrial flutter diagnosed after coronary artery bypass graft and since then the patient is on anticoagulation and amiodarone and Lopressor, diabetes, hypertension, hyperlipidemia, cervical spondylosis, CAT scan showed narrowing of the disc space at C5-C6, C6-C7, bilateral neural foraminal and narrowing is identified at the level of C3-C4. Weakness of both upper extremity and the lower extremity, loss of decreased power of upper extremity as well. RECOMMENDATIONS: We will hold amiodarone since the patient is already in atrial flutter. We will discontinue amiodarone. The patient is on anticoagulation as well as aspirin, Plavix. I am not sure why the patient is on Plavix. We will try to get more information. If the patient does not have any stent, then we can discontinue Plavix, continue Eliquis, continue baby aspirin for history of coronary artery disease and CABG. Should the patient need surgical intervention, neurosurgical, the patient should be off Eliquis for 48 hours before nonvascular surgery as well as plan for 5 days. We will follow with you, get echo to assess LV function. Since the patient does not have any chest pain, no ischemia, no arrhythmia except baseline, atrial flutter, so no absolute contraindication for surgery. We will clear the patient for surgery as a [id number] risk surgery, but definitely we will hold Eliquis 48 hours and Plavix for 5 days before surgery. We will get echo to assess LV function. We will get lipid profile, TSH and hemoglobin A1c as well. We will follow with you and we will discontinue as mentioned amiodarone and we will also discontinue aspirin. Continue Eliquis and Plavix for now. We will get more information in reference. The patient has various stents done. If no stent, then we can discontinue Plavix as well and discontinue baby aspirin and Eliquis. I will discontinue amiodarone because of the bradycardia as well as the patient's atrial flutter. No need to continue because the patient is getting bradycardia. Thank you Dr. Chsae, for providing us the opportunity in taking care of the patient, Gagan Watson. Renetta Shaikh MD
== END 2017-12-20 19:33 | disposition home or self-care (01) ==
LOC: ED 22:10 → ERH 12-19 02:26 → 2RNO 12-19 03:29
PROVIDERS: ADMIT Internal Medicine; ATTEND Internal Medicine
DX: M48.52XA Collapsed vertebra, not elsewhere classified, cervical region, initial encounter for fracture (principal); M50.222 Other cervical disc displacement at C5-C6 level; I10 Essential (primary) hypertension; E11.9 Type 2 diabetes mellitus without complications; I25.10 Atherosclerotic heart disease of native coronary artery without angina pectoris; R53.1 Weakness; N40.0 Benign prostatic hyperplasia without lower urinary tract symptoms; E78.5 Hyperlipidemia, unspecified; I48.91 Unspecified atrial fibrillation; I48.92 Unspecified atrial flutter; Z95.1 Presence of aortocoronary bypass graft; Z87.891 Personal history of nicotine dependence; Z79.82 Long term (current) use of aspirin; Z79.02 Long term (current) use of antithrombotics/antiplatelets; Z79.01 Long term (current) use of anticoagulants
CPT/HCPCS: 36415; 70450; 71045; 72125; 72141; 80053; 80061; 82550; 82553; 82948; 83036; 83615; 84153; 84443; 84484; 85025; 85610; 85730; 86850; 86900; 93005; 93306; 96361; 96372; 96374; 96375; 96376; 99285; G0378; J0360; J1100; J2270; J7030